=== PATIENT | female | born 1945 | race Caucasian/White ===

== ENCOUNTER 2019-06-05 05:19 | Day surgery (SDC) | payer MEDICARE, OTHER ==
[2019-06-05] MEDS ORDERED: DEXAMETHASONE 4 MG/ML 1ML VIAL IVP ONE (05:20)
[2019-06-05] MEDS ORDERED: ROPIVACAINE HCL (NAROPIN) /PF 5MG/ML 20ML VIAL IV ONE (05:20)
[2019-06-05] MEDS ORDERED: MIDAZOLAM HCL 2MG/2ML VIAL IV ONE (05:20)
[2019-06-05] MEDS ORDERED: LIDOCAINE 2% MDV (20MG/ML) 20ML VIAL IV ONE (05:20)
[2019-06-05] MEDS ORDERED: GLYCOPYRROLATE 0.2 MG/ML ML IV ONE (05:20)
[2019-06-05] MEDS ORDERED: PROPOFOL 10 MG/ML VIAL IV ONE (05:20)
[2019-06-05] MEDS ORDERED: RINGERS SOLUTION,LACTATED 1,000 ML IV ONE ×2 (05:55→07:45)
[2019-06-05] MEDS ORDERED: METOCLOPRAMIDE 10 MG TABLET PO ONE (06:00)
[2019-06-05] MEDS ORDERED: MECLIZINE 25 MG TABLET PO ONE (06:00)
[2019-06-05] MEDS ORDERED: FAMOTIDINE 20MG TABLET PO ONE (06:00)
[2019-06-05] MEDS ORDERED: CEFAZOLIN 2 Gram 2 GM/50 ML BAG IVPB ONE (06:00)
[2019-06-05] MEDS: RINGERS SOLUTION,LACTATED 1,000 ML IV SCH (09:15)
[2019-06-05] MEDS ORDERED: ACETAMINOPHEN 325 MG TAB PO PRN (09:15)
[2019-06-05] MEDS ORDERED: SENNOSIDES/DOCUSATE SODIUM UD CAPSULE PO PRN (09:15)
[2019-06-05] MEDS ORDERED: NALOXONE 0.4 MG/1 ML VIAL IVP PRN (09:15)
[2019-06-05] MEDS ORDERED: METOCLOPRAMIDE HCL 10 MG/2 ML VIAL IVP PRN (09:15)
[2019-06-05] MEDS ORDERED: ZOLPIDEM TARTRATE 5 MG TABLET PO PRN (09:15)
[2019-06-05] MEDS ORDERED: MAGNESIUM HYDROXIDE 30 ML UDC PO PRN (09:15)
[2019-06-05] MEDS ORDERED: AL HYDROX/MAG HYDROX 30ML UD PO PRN (09:15)
[2019-06-05] MEDS ORDERED: OXYCODONE HCL/APAP 5MG/325MG TABLET PO PRN ×2 (09:15)
[2019-06-05] MEDS ORDERED: DIPHENHYDRAMINE HCL 25 MG CAPSULE PO PRN (09:15)
[2019-06-05] MEDS ORDERED: ALBUTEROL HFA 8 GM INHALER INH PRN (09:16)
[2019-06-05] MEDS: OXYBUTYNIN CHLORIDE 5MG TABLET PO SCH (10:59)
[2019-06-05] MEDS: PANTOPRAZOLE SODIUM 40 MG TABLET PO SCH (11:00)
[2019-06-05] MEDS ORDERED: OXYCODONE/APAP 7.5MG/325MG TABLET PO PRN (12:30)
[2019-06-05] MEDS ORDERED: HYDROMORPHONE HCL 2 MG/ML VIAL IV ONE (12:30)
[2019-06-05] MEDS: HYDROMORPHONE HCL 2 MG/ML VIAL IV PRN ×3 (12:48→17:15)
[2019-06-05] MEDS: ONDANSETRON HCL IV 4 MG/2 ML VIAL IVP PRN ×2 (13:20→17:48)
--- NOTE | 2019-06-05 14:29 | Rehab Evaluation ---
Patient Information - Patient Information Diagnosis: R Knee DJD Ordered Treatment: PT Evaluate and Treat Status: Initial Evaluation Surgery: Yes (R Knee TKA) Date of Surgery: 06/05/19 Past Medical/Surgical Hx: PAST MEDICAL/SURGICAL HISTORY Surgery to Affected Area? No Recent Surgery? Past Surgical History LTKA 8-3-10 HYST APPY BILAT TRIGGER FINGERS RIGHT BUNIONECTOMY CATARCTS C SCOPES RETINAL REPAIR BILAT PMH - Respiratory Hx Respiratory Disorders Yes Hx Asthma Yes: USES INHALER PRN USUALLY ONLY A COUPLE OF TIMES A WEEK Hx Bronchitis Yes: HX OF Hx Dyspnea Yes Hx Pneumonia Yes: HX OF Hx Sleep Apnea Yes Hx of CPAP No Hx of SOB Yes PMH - Cardiovascular Hx Cardiovascular Disorders Yes Hx Deep Vein Thrombosis Yes: POSSIBLY Hx Edema Yes: 3 PLUS PITTING EDEMA LE FROM AMLODIPINE ON LASIX FOR 5 DAYS Hx Hypertension Yes: SWITCHING MEDS Hx Irregular Heartbeat Yes: HX OF RESOLVED WITH MAGNESIUM Exercise Tolerance Poor 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 YEARS AGO NO RESIDUAL (TIA) PMH - Neuro Hx Neurological Disorders Yes Hx Dizziness Yes: OCASS Hx Seizures Yes: MINI SEIZURES FROM TRAMADOL 2-3 YRS AGO 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 YEARS AGO NO RESIDUAL (TIA) PMH - GI Hx Gastrointestinal Disorders Yes Hx Gastroesophageal Reflux Yes: CONTROLLED WITH MEDS PMH - Hx Genitourinary Disorders Yes Hx Bladder Problem Yes: FREQUENCY AND URGENCY Hx Renal Disease Yes: HX OF LOW GFR Comment: HYST PMH - Endocrine Hx Endocrine Disorders Yes Hx Thyroid Disease Yes: HYPO PMH - Musculoskeletal Hx Musculoskeletal Disorders Yes Hx Arthritis Yes: RIGHT KNEE , HANDS AND FEET Hx Back Injury Yes: FX C 10-23 FELL OFF HORSE PMH - Psych Hx Psychiatric Problems No PMH - Hematology/Oncology Hx Hematology/Oncology Yes Disorders Hx Anemia Yes Hx Bruising Yes: D/T ASA Hx Cancer Yes: SKIN Premorbid Status: Detail (Patient was independent in ADLs prior to surgery.) Social History: Detail (Patient lives with her spouse in a 1-story home. She has 2 steps to enter her home with a railing on the R when entering the home. In the bathroom there is a walk-in shower with a shower bench but no grab bars or hand- held shower head. There is an elevated toilet with no grab bars. She will have assistance with meals and transportation following surgery. She has a walker available.) Precautions: [place], Other (WBAT on R LE) - Time With Patient Total Time Spent With Patient (Min): 30 Treatment Procedures: Detail (Initial evaluation; low complexity Patient was left in bed with her call light and bedside table within reach. The nursing staff was notified of her position.) Subjective Information - Subjective Information Per Patient (Patient reported that she had pain in her R knee at the time of the evaluation.) Objective Data - Pain Pain Present: Yes (Pain in the R knee) - Mental Status Patient Orientation: Oriented x3 - Visual Perception Appears within normal limits for therapeutic activities - ROM Not within normal limits (R knee ROM limited as expected s/p R TKA procedure. R hip and ankle, and L LE ROM is within normal limits for functional activities.) - Strength/Tone Not within normal limits (R knee strength limited as expected s/p R TKA proc edure. L LE and R hip and ankle strength is within normal limits for functional activities.) - Coordination Appears within normal limits for therapeutic activities - Bed Mobility Needs Assist (Patient required assistance in moving her R LE in bed and to the edge of bed. She used the trapeze to pull herself up in bed.) - Transfers Needs Assist (Patient was independent in sit to stand and stand to sit.) - Sensation Intact - Gait Detail (Patient ambulated 5 feet with a front wheeled walker WBAT on the R LE with contact guarding.) Therapy Assessment - Therapy Assessment Detail (Patient presents with pain, decreased ROM and strength, and gait abnormalities that make her a good candidate for inpatient physical therapy services. She will be able to progress towards reaching her inpatient therapy goals.) Problem List - Problem List Physical Therapy Problem List: Detail (1. Pain in R knee 2. Decreased R knee ROM 3. Decreased R knee strength 4. Gait abnormalities 5. Decreased tolerance for stairs) Goals - Goals Physical Therapy Goals: 1. Patient will be able to ambulate household distances independently with a front-wheeled walker to get around her home for ADLs. 2. Patient will be indpendent in her HEP to help increase strength and ROM of the R knee. 3. Patient will be able to ascend and descend 2 stairs with supervision to be able to get in and out of her home. Plan - Plan Physical Therapy Plan: Patient will be seen for 1-2 more visits with treatment consisting of therapeutic exercises and activities, gait training, stair training, and HEP instruction.
[2019-06-05] MEDS: CEFAZOLIN 2 Gram 2 GM/50 ML BAG IVPB SCH ×2 (15:00→22:42)
[2019-06-05] MEDS: OXYCODONE/APAP 7.5MG/325MG TABLET PO PRN ×2 (15:00→21:00)
[2019-06-05] MEDS: ASPIRIN 325 MG TAB ENTERIC-COATED PO SCH (21:01)
[2019-06-05] MEDS ORDERED: MONTELUKAST SODIUM 10MG TABLET PO SCH (22:00)
[2019-06-06] MEDS: RINGERS SOLUTION,LACTATED 1,000 ML IV SCH (02:41)
[2019-06-06] MEDS: PANTOPRAZOLE SODIUM 40 MG TABLET PO SCH (06:22)
[2019-06-06] MEDS: OXYCODONE/APAP 7.5MG/325MG TABLET PO PRN ×2 (06:22→12:04)
[2019-06-06] MEDS: CEFAZOLIN 2 Gram 2 GM/50 ML BAG IVPB SCH (06:31)
[2019-06-06] MEDS ORDERED: LEVOTHYROXINE SODIUM 50 MCG TABLET PO SCH (07:00)
--- NOTE | 2019-06-06 08:20 | Operative Note ---
DATE OF SURGERY: 06/05/2019 SURGEON: Les Williamson DO PREOPERATIVE DIAGNOSIS: Osteoarthritis of the right knee. POSTOPERATIVE DIAGNOSIS: Osteoarthritis of the right knee. OPERATION: Right total knee arthroplasty. DESCRIPTION OF PROCEDURE: This 74-year-old female was taken to the operating room and placed in the supine position on the operating room table. Spinal anesthetic was administered. The right lower extremity was elevated. It was prepped with Hibiclens and draped in the usual sterile fashion. It was exsanguinated and the tourniquet inflated to 300 mmHg. All scrub personnel wore personal isolation suits. An anterior longitudinal midline incision was made followed by a medial parapatellar arthrotomy incision. An intracondylar drill hole was made for the intramedullary alignment jose, and a 5-degree valgus 9 mm cut was made in the distal femur. The wafers of bone were removed. Sizing jig was affixed and size 65 was seen to be the appropriate size. The cutting block was pinned in 3 degrees of external rotation. The appropriate cuts were made. We then directed our attention to the proximal tibia, and an extramedullary alignment guide was used to cut the proximal tibia referencing a 10 mm cut off the lateral tibial plateau. The appropriate cut was made once the cutting block had been set in the appropriate position and its alignment rechecked. A 3-degree posterior slope cut was made. The sizing jig for the tibia was found to be 71. Stem punch was used. Remnants of the menisci and osteophytes were removed from the posterior aspect of the joint. The wound was copiously irrigated to remove debris from the joint. Trial components were inserted after the patella had been cut and restored to anatomic height with a 34 x 7.8 mm trial. An 11 mm bearing was seen to be the appropriate size. The knee was taken through range of motion with good stability. We then removed the trial components and the wound again copiously irrigated with pulse lavage lactated Ringer's solution. The bony surfaces were dried. All components were cemented into place and excess cement removed. After the insertion of each component. Initially the tibial baseplate was cemented followed by the insertion of the tibial bearing, femoral component, and finally the patella. Once the cement had hardened, the knee was again taken through range of motion and found to be stable. A drain was placed in the wound through a separate stab incision, and the arthrotomy incision was closed with a #2 Vicryl. The subcutaneous tissue was closed with 0 Vicryl and the skin was stapled. Sterile dressings applied with a Polar Care. The patient was taken to the recovery room in satisfactory condition. GROSS PATHOLOGY: This patient demonstrated full-thickness articular cartilage loss noted to the articular cartilage at the medial compartment and grade 2 changes noted laterally and grade 3 changes noted at the patellofemoral articulation. Final components inserted were a [employer] V[employer]ard size 65 cruciate retaining femoral component, a 71 tibial baseplate, an 11 mm anterior stabilized bearing, and a 34 x 7.8 mm patella was used. ANGELICA
[2019-06-06] MEDS: ONDANSETRON HCL IV 4 MG/2 ML VIAL IVP PRN (08:23)
[2019-06-06] MEDS ORDERED: HYDROCHLOROTHIAZIDE 12.5 MG CAPSULE PO SCH (10:00)
--- NOTE | 2019-06-06 10:07 | Physical Therapy Tx Note ---
Physical Therapy Tx Note - Treatment Note Tolerated: Good Total Time Spent With Patient: 20 Physical Therapy Tx Note: Detail (Patient reported that she had 5/10 pain in her R knee this morning. She was able to move her R leg to the edge of the bed using a strap after having assistance with putting the strap on her foot and hooking her left leg under the R. Patient was independent in sit to stand and stand to sit. She ambulated 35 feet over smooth surfaces with a front-wheeled walker with supervision using WBAT on the R LE. During ambulation she reported that she felt nauseous. Patient requested that stair training be completed this afternoon. The patient was left in bed with the OT staff working with her on dressing.) Physical Therapy Problem List: Detail (1. Pain in R knee 2. Decreased R knee ROM 3. Decreased R knee strength 4. Gait abnormalities 5. Decreased tolerance for stairs) Physical Therapy Goals: 1. Patient will be able to ambulate household distances independently with a front-wheeled walker to get around her home for ADLs. 2. Patient will be indpendent in her HEP to help increase strength and ROM of the R knee. 3. Patient will be able to ascend and descend 2 stairs with supervision to be able to get in and out of her home. Physical Therapy Plan: Patient will be seen for 1-2 more visits with treatment consisting of therapeutic exercises and activities, gait training, stair training, and HEP instruction.
[2019-06-06] MEDS: OXYBUTYNIN CHLORIDE 5MG TABLET PO SCH (10:09)
[2019-06-06] MEDS: ASPIRIN 325 MG TAB ENTERIC-COATED PO SCH (10:10)
--- NOTE | 2019-06-06 10:35 | Rehab Evaluation ---
Patient Information - Patient Information Diagnosis: R Knee DJD Ordered Treatment: OT Evaluate and Treat Status: Initial Evaluation Surgery: Yes (R Knee TKA) Date of Surgery: 06/05/19 Past Medical/Surgical Hx: PAST MEDICAL/SURGICAL HISTORY Surgery to Affected Area? No Recent Surgery? Past Surgical History LTKA 8-3-10 HYST APPY BILAT TRIGGER FINGERS RIGHT BUNIONECTOMY CATARCTS C SCOPES RETINAL REPAIR BILAT PMH - Respiratory Hx Respiratory Disorders Yes Hx Asthma Yes: USES INHALER PRN USUALLY ONLY A COUPLE OF TIMES A WEEK Hx Bronchitis Yes: HX OF Hx Dyspnea Yes Hx Pneumonia Yes: HX OF Hx Sleep Apnea Yes Hx of CPAP No Hx of SOB Yes PMH - Cardiovascular Hx Cardiovascular Disorders Yes Hx Deep Vein Thrombosis Yes: POSSIBLY Hx Edema Yes: 3 PLUS PITTING EDEMA LE FROM AMLODIPINE ON LASIX FOR 5 DAYS Hx Hypertension Yes: SWITCHING MEDS Hx Irregular Heartbeat Yes: HX OF RESOLVED WITH MAGNESIUM Exercise Tolerance Poor 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 YEARS AGO NO RESIDUAL (TIA) PMH - Neuro Hx Neurological Disorders Yes Hx Dizziness Yes: OCASS Hx Seizures Yes: MINI SEIZURES FROM TRAMADOL 2-3 YRS AGO 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 YEARS AGO NO RESIDUAL (TIA) PMH - GI Hx Gastrointestinal Disorders Yes Hx Gastroesophageal Reflux Yes: CONTROLLED WITH MEDS PMH - Hx Genitourinary Disorders Yes Hx Bladder Problem Yes: FREQUENCY AND URGENCY Hx Renal Disease Yes: HX OF LOW GFR Comment: HYST PMH - Endocrine Hx Endocrine Disorders Yes Hx Thyroid Disease Yes: HYPO PMH - Musculoskeletal Hx Musculoskeletal Disorders Yes Hx Arthritis Yes: RIGHT KNEE , HANDS AND FEET Hx Back Injury Yes: FX C 10-23 FELL OFF HORSE PMH - Psych Hx Psychiatric Problems No PMH - Hematology/Oncology Hx Hematology/Oncology Yes Disorders Hx Anemia Yes Hx Bruising Yes: D/T ASA Hx Cancer Yes: SKIN Premorbid Status: Detail (Patient was independent in ADLs/IADLs prior to surgery.) Social History: Detail (Patient lives with her spouse in a 1-story home. She has 2 steps to enter her home with a railing on the R when entering the home. In the bathroom there is a walk-in shower with a shower bench but no grab bars or hand- held shower head. There is an elevated toilet with no grab bars. She will have assistance with meals and transportation following surgery. She has a walker available.) Precautions: [place], [place], Other (WBAT on R LE) - Time With Patient Total Time Spent With Patient (Min): 55 Treatment Procedures: Detail (OT eval low complexity) Subjective Information - Subjective Information Per Patient Objective Data - Pain Pain Present: Yes (01/29) - Mental Status Patient Orientation: Oriented x3 - Visual Perception Appears within normal limits for therapeutic activities - ROM Within normal limits ([place] UE AROM WNL) - Strength/Tone Within normal limits ([place] UE strength WNL) - Coordination Appears within normal limits for therapeutic activities - Bed Mobility Needs Assist (Pt initially required min assist for moving right LE, she was able to demonstrate Ind with use of sheet and belt for leg heel brusher.) - Transfers Independent (Ind with sit to stand from EOB height) - Balance Balance Sitting: Good Balance Standing: Good - Sensation Intact - Gait Detail (Pt ambulating short distances with 2 wheeled walker and supervision) - ADL's/IADL's Detail (Pt educated and able to demonstrate learning of modified LE dressing techniques including doffing slipper socks and donning pants and tie shoes. Reviewed kitchen and shower modifications and safety, pt verbalized learning. She reports spouse will be available to assist as needed.) Therapy Assessment - Therapy Assessment Detail (Pt is Ind with modified LE dressing techniques.) Problem List - Problem List Physical Therapy Problem List: Detail (1. Pain in R knee 2. Decreased R knee ROM 3. Decreased R knee strength 4. Gait abnormalities 5. Decreased tolerance for stairs) Occupational Therapy Problem List: Detail (No current IP OT problems identified.) Goals - Goals Physical Therapy Goals: 1. Patient will be able to ambulate household distances independently with a front-wheeled walker to get around her home for ADLs. 2. Patient will be indpendent in her HEP to help increase strength and ROM of the R knee. 3. Patient will be able to ascend and descend 2 stairs with supervision to be able to get in and out of her home. Occupational Therapy Goals: No further IP OT goals identified. Prognosis - Prognosis Good Plan - Plan Physical Therapy Plan: Patient will be seen for 1-2 more visits with treatment consisting of therapeutic exercises and activities, gait training, stair training, and HEP instruction. Occupational Therapy Plan: No further IP OT recommended. Thank you for this referral.
--- NOTE | 2019-06-06 14:21 | Physical Therapy Tx Note ---
Physical Therapy Tx Note - Treatment Note Tolerated: Fair Total Time Spent With Patient: 35 Physical Therapy Tx Note: Detail (Pt was resting in bed upon arrival. The ice machine was on her knee but not plugged in. Pt states that her knee was really stiff and sore. Pt also states that the only exercises she is doing in ankle pumps. Pt transferred reclined to sitting edge of bed independently but used a sheet with help for her right leg. Pt completed ex's of ankle pumps, heel slides, quad sets, and glute squeezes all x 10 and all seated at edge of bed. Pt sit to stand with stand by assist, gait with standard walker x 175 feet with stand by assist, pt completed stairs, descend and ascend with contact gaurd assist x 3 steps. Pt returned to room and sat edge of bed. Pt transferred to supine with sheet to assist leg but completed all bed mobility independently. Pt did require one rest period during gait prior to doing stairs. Pt states knee felt better and easier to walk after treatment.) Physical Therapy Problem List: Detail (1. Pain in R knee 2. Decreased R knee ROM 3. Decreased R knee strength 4. Gait abnormalities 5. Decreased tolerance for stairs) Physical Therapy Goals: 1. Patient will be able to ambulate household distances independently with a front-wheeled walker to get around her home for ADLs. 2. Patient will be indpendent in her HEP to help increase strength and ROM of the R knee. 3. Patient will be able to ascend and descend 2 stairs with supervision to be able to get in and out of her home. Prognosis: Good Physical Therapy Plan: Patient to be discharged due to meeting all goals of PT at this time. Pt is to start outpatient PT at a clinic near her home of Tuesday06/08/19.
--- NOTE | 2019-06-08 08:01 | Discharge Summary ---
DATE OF ADMISSION: 06/05/2019 DATE OF DISCHARGE: 06/06/2019 ADMITTING DIAGNOSIS: Osteoarthritis of the right knee. DISCHARGE DIAGNOSIS: Osteoarthritis of the right knee. OPERATIVE PROCEDURE: Elective right total knee arthroplasty. HOSPITAL COURSE: This 74-year-old female was admitted to the hospital for elective total knee arthroplasty of the right knee. She tolerated the operative procedure well and she progressed satisfactorily with physical therapy. There was no sign of wound complication and no sign of DVT. No chest pain or shortness of breath. She was tolerating the pain with Percocet. The drain was removed. The patient will be discharged to use her ISMA hose during the day and remove them at night. She will have outpatient physical therapy previously arranged. She is to take aspirin 325 mg daily for a month. She was given a prescription for Percocet 7.5/325 mg, #40, 1 every 6 hours as necessary for pain. She will follow up in 2 weeks. Routine wound care instructions were given. Should she have any problems prior to being seen, she was instructed to call my office. ANGELICA
== END 2019-06-06 15:36 | disposition home or self-care (01) ==
LOC: SUR 05:19 → MEDSURG 09:15 → SUR 06-06 15:36
PROVIDERS: ATTEND Orthopaedic Surgery
DX: M17.11 Unilateral primary osteoarthritis, right knee (principal); K21.9 Gastro-esophageal reflux disease without esophagitis; R60.9 Edema, unspecified; J45.909 Unspecified asthma, uncomplicated; G47.33 Obstructive sleep apnea (adult) (pediatric)
CPT/HCPCS: 27447; 01402; 64447; 36416; 82948; 76942; J2405 ×2; J3490 ×2; J1170; J0690 ×2; J2795; J7120